=== PATIENT | female | born 1945 | race Caucasian/White ===

== ENCOUNTER 2023-06-05 11:34 | Inpatient (IN) | payer MEDICARE, MEDICAID, SELFPAY ==
[2023-06-05] VITALS (18 sets, daily range): BP systolic 98–161; BP diastolic 47–111; PULSE 61–86; RESP 12–20; TEMP 37–37.7; O2SAT 95–100; BMI 21.3
--- NOTE | ~2023-06-05 | CT_ITS ---
EXAMINATION: CTA abdomen pelvis DATE: 06/06/2023 18:02 INDICATION: Abdominal aortic aneurysm on chest CT TECHNIQUE: Computed tomographic angiography (CTA) of the abdomen and pelvis was performed with 100 mL Omnipaque-350 intravenous contrast. Maximum intensity projection 3D-reconstructions of the aorta and other arteries were constructed by the technologist on a separate workstation. The dose-length produ ct (DLP) was 307.74 mGy-cm. Automated exposure control and iterative reconstruction technique were em ployed. COMPARISON: None. FINDINGS: There is a 3.1 x 3.0 cm fusiform infrarenal abdominal aortic aneurysm. There is a short seg ment of dissection of the infrarenal abdominal aorta which appears to be fenestrated. There is calcif ied atherosclerosis of the iliac vessels without hemodynamically significant stenosis. The celiac axi s, superior mesenteric artery and inferior mesenteric artery are normal at their origins. There are s andriy renal arteries. The heart size is normal. There is mild emphysema of the visualized lung bases. There is a small slid ing hiatal hernia. There is a 7 mm cyst in the right hepatic lobe. The spleen, pancreas, gallbladder, and adrenal glands are unremarkable. Cysts of the kidneys measure up to 6 mm on the left. No patholo gically enlarged abdominal or pelvic lymph nodes are identified. No free intraperitoneal gas or evide nce of bowel obstruction. Colonic diverticulosis is present without evidence of diverticulitis. There is a burst fracture of L4. IMPRESSION: 1. 3.1 cm fusiform infrarenal abdominal aortic aneurysm with a short segment aortic dissection, likel y fenestrated. Vascular surgical follow-up is recommended. Reviewed, dictated and finalized at location F. ATION SUPERVISOR IMPRESSION: 1. 3.1 cm fusiform infrarenal abdominal aortic aneurysm with a short segment ao rtic dissection, likely fenestrated. Vascular surgical follow-up is recommended .
--- NOTE | ~2023-06-05 | CT_ITS ---
EXAMINATION:CT diagnostic chest wo con DATE: 06/05/2023 16:19 INDICATION: Lung mass. TECHNIQUE: Computed tomography (CT) of the chest was performed without intravenous contrast. Automate d exposure control and iterative reconstruction technique were employed. The dose-length product (DLP ) was 175.26 mGy-cm. COMPARISON: Chest single view 06/05/2023 FINDINGS: There is mild emphysema. There are airspace opacities with volume loss and calcifications a t the lung apices, right worse than left. No pleural effusion. There is a 6 mm nodule in right thyroi d lobe, likely not clinically significant. The heart size is normal. There are coronary artery calcif ications. No pericardial effusion. The central pulmonary arteries are enlarged, consistent with pulmo nary arterial hypertension. There are surgical clips in right axilla. Partially visualized is an abdo tonya aortic aneurysm measuring at least 3.1 cm . There is severe cervical spondylosis and moderate t horacic spondylosis. There is a chronic compression fracture of T10. IMPRESSION: 1. Airspace opacities at the lung apices, right worse than left, most likely granulomatous disease. C onsider PET/CT to exclude malignancy. 2. Mild emphysema. 3. Partially visualized abdominal aortic aneurysm measuring at least 3.1 cm. Abdomen CTA is recommend ed. Reviewed, dictated and finalized at location A. TRICAL RESEARCH ENGINEER IMPRESSION: 1. Airspace opacities at the lung apices, right worse than left, most likely gr anulomatous disease. Consider PET/CT to exclude malignancy. 2. Mild emphysema. 3. Partially visualized abdominal aortic aneurysm measuring at least 3.1 cm. Ab domen CTA is recommended.
--- NOTE | ~2023-06-05 | CT_ITS ---
EXAMINATION: CT brain wo con DATE: 06/05/2023 14:05 INDICATION: Syncopal episode. TECHNIQUE: Computed tomography (CT) of the head was performed without intravenous contrast. Sagittal and coronal reconstructions were performed. The mA was adjusted according to patient size. Iterative reconstruction technique was employed. The dose-length product was 681.00 mGy-cm. COMPARISON: None FINDINGS: Prominent metallic streak artifact surrounding a 2.0 x 1.7 x 1.8 cm multiple metallic embolization co ils along the cephalad margin of stenting of the suprasellar portion of the left internal carotid art fernando. No acute intracranial hemorrhage, acute infarction or abnormal extra axial fluid collection. The re is mild scattered white matter hypoattenuation consistent with chronic small vessel ischemic disea se. Ventricles are normal and symmetric. No mass/mass effect. Changes of bilateral intraocular lens r eplacement. The orbits and mastoid air cells are normal. Mucosal thickening at the bilateral frontal and ethmoid sinuses. IMPRESSION: 1. Mild scattered white matter hypoattenuation consistent with chronic small vessel ischemic disease. No acute intracranial process. 2. Large ball of embolization coils underlying a stent along the suprasellar portion of the left inte rnal carotid artery. Correlate with surgical history. Reviewed, dictated and finalized at location L. [facility] HOSPITAL CLERK IMPRESSION: 1. Mild scattered white matter hypoattenuation consistent with chronic small ve ssel ischemic disease. No acute intracranial process. 2. Large ball of embolization coils underlying a stent along the suprasellar po rtion of the left internal carotid artery. Correlate with surgical history.
--- NOTE | ~2023-06-05 | XR_ITS ---
EXAMINATION: XR chest 1V portable DATE: 06/05/2023 14:58 INDICATION: Syncope. TECHNIQUE: A single frontal view of the chest was obtained. COMPARISON: None. FINDINGS: There are airspace opacities in right upper lobe. There is mild scarring at left lung apex. No pleural effusion or pneumothorax. The heart size is normal. There are surgical clips in right axi lla. IMPRESSION: 1. Airspace opacities in right upper lobe, which may be primary bronchogenic carcinoma, pneumonia, or granulomatous disease. Noncontrast chest CT is recommended. Reviewed, dictated and finalized at location A. SEWER IMPRESSION: 1. Airspace opacities in right upper lobe, which may be primary bronchogenic ca rcinoma, pneumonia, or granulomatous disease. Noncontrast chest CT is recommend ed.
--- NOTE | 2023-06-05 11:42 | ECG_ITS ---
Measurements Intervals [place] Rate: 62 P: -6 MN: 133 QRS: -3 QRSD: 90 T: -12 QT: 411 QTc: 419 Interpretive Statements SINUS RHYTHM VOLTAGE CRITERIA FOR LVH [MEETS CRITERIA IN ONE OF: R(aVL), S(V1), R(V5), R(V5/V6)+S(V1)] INFERIOR MYOCARDIAL INFARCTION , OF INDETERMINATE AGE [40+ ms Q WAVE AND/OR ST/T ABNORMALITY IN II/aVF] NO PREVIOUS ECG AVAILABLE FOR COMPARISON Electronically Signed On 06-05-2023 15:49:36 PUBLIC FINANCE SPECIALIST by Anayeli Fuchs M.D.
[2023-06-05 12:01] LABS: Basophils Percent Auto 0.3 % (0.2-1.2); Eosinophils Absolute Auto 0.1 K/mm3 (0-0.3); Eosinophils Percent Auto 0.8 % (0-4.4); Hematocrit 30.6 % (37.0-47.0); Hemoglobin 10.1 g/dL (12.0-15.0); Immature Granulocyte Absolute 0.05 K/mm3 (0.00-0.031); Immature Granulocyte Percent A 0.7 % (0-0.5); Lymphocytes Percent Auto 5.3 % (18.3-44.2); Mean Corpuscular Hemoglobin 35.3 pg (26-34); Mean Platelet Volume 9.6 fl (7.4-10.4); Monocytes Percent Auto 12.5 % (2.6-8.5); Neutrophils Absolute Auto 6.1 K/mm3 (1.3-6.7); Neutrophils Percent Auto 80.4 % (45.5-73.1); Platelet Count Result 204 k/mm3 (150-375); Red Blood Count 2.86 M/mm3 (4.2-5.4); Red Cell Distribution Width 12.8 % (11.5-14.5); White Blood Count 7.6 K/mm3 (4.5-10.0)
[2023-06-05 12:12] LABS: Alanine Aminotransferase 23 U/L (6-35); Albumin Level 3.8 g/dL (3.5-5.1); Alkaline Phosphatase 75 U/L (38-126); Anion Gap 7 mmol/L (8-16); Aspartate Amino Transferase 24 U/L (14-36); Bilirubin,Total 0.4 mg/dL (0.2-1.3); Blood Urea Nitrogen 17 mg/dL (7-17); Calcium 9.4 mg/dL (8.4-10.2); Carbon Dioxide 28 mmol/L (22-30); Chloride 99 mmol/L (98-107); Estimated Glomerular Filt Rate > 60; Glucose 130 mg/dL (65-110); Potassium 3.7 mmol/L (3.4-5.0); Sodium 134 mmol/L (137-145)
[2023-06-05 12:33] LABS: Anisocytosis 1+ (NORMAL); Hypochromasia 1+ (NORMAL); Platelet Estimate Adequate (Adequate); Poikilocytosis 1+ (NORMAL); Schistocytes None Seen (NORMAL)
--- NOTE | 2023-06-05 13:41 | PC.NURSE ---
Update on pt given to MEY Breaux at [facility].
[2023-06-05] MEDS: SODIUM CHLORIDE 0.9% IV 1,000 ML 999 ML IV CONT (13:53)
--- NOTE | 2023-06-05 14:33 | ED.SYNCOPE ---
HPI - Syncope General Chief Complaint: Syncope Stated Complaint: syncope vs unresponsive episode Time Seen by Provider: 06/05/23 13:12 History of Present Illness HPI narrative: This is a 77-year-old female, with history stroke, left carotid endarterectomy 1 month ago and seizures, who presents to the emergency department after a possible syncopal episode. The patient states she was seated, when she felt hot, flushed, nauseated and lost consciousness. She is not sure for how long she was out. She denies confusion or pain waking consistent with seizure. She has no other complaints at this time. Related Data Home Medications Medication Instructions Recorded Confirmed acetaminophen 500 mg tablet 500 mg PO Q6H PRN Pain, Mild 06/05/23 06/05/23 amlodipine 5 mg tablet 5 mg PO DAILY 06/05/23 06/05/23 anastrozole 1 mg tablet 1 mg PO DAILY 06/05/23 06/05/23 aspirin 325 mg tablet,delayed 325 mg PO DAILY 06/05/23 06/05/23 release atorvastatin 40 mg tablet 40 mg PO DAILY 06/05/23 06/05/23 cholecalciferol (vitamin D3) 125 125 mcg PO DAILY 06/05/23 06/05/23 mcg (5,000 unit) tablet escitalopram oxalate 10 mg tablet 10 mg PO HS 06/05/23 06/05/23 levetiracetam 750 mg tablet 750 mg PO BID 06/05/23 06/05/23 losartan 50 mg tablet 50 mg PO DAILY 06/05/23 06/05/23 metoprolol succinate 25 mg 25 mg PO HS 06/05/23 06/05/23 tablet,extended release 24 hr Allergies Allergy/AdvReac Type Severity Reaction Status Date / Time latex Allergy Rash Verified 06/05/23 18:29 Review of Systems Review of Systems: CONSTITUTIONAL: Denies fever, chills, or sweats. CARDIOVASCULAR: Denies chest pain, palpitations, or edema. RESPIRATORY: Denies cough or dyspnea. GASTROINTESTINAL: Denies abdominal pain, nausea, vomiting, or diarrhea. GENITOURINARY: Denies dysuria or hematuria. SKIN: Denies rash or itching. MUSCULOSKELETAL: Denies back pain, joint pain, or myalgia. NEUROLOGIC: Syncope denies headache, numbness, dizziness, or weakness. PSYCHIATRIC: Denies anxiety or depression. [facility], [facility] Past Medical History Medical History Seizure Stroke Surgical History Surgical History History of carotid endarterectomy Social History Social History Smoking packs per day: 2 Smoking cigarettes per day: 40.0 Years smoked: 60 Smoking pack-years: 120.00 Smoking status: Former smoker Tobacco type: cigarettes Second hand tobacco smoke exposure: Yes Smoking end date: 04/25/23 Alcohol intake: never Substance use: never Do You Feel Safe in your Home?: Yes Lack of Transportation: No Lack of Food: Never True Current Housing: I Have Housing Concerned About Future Housing: No Difficulty Paying Gas/Electric Bills: No Difficulty Paying for Meds: No Currently Unemployed: No Education: High School Diploma/GED Difficulty w/ Childcare or Family Care: No Spiritual care concerns: No Exam Narrative: GENERAL: Well-developed, well-nourished, and in no acute distress. HEAD: Normocephalic, atraumatic. EYES: PERRLA and EOMI. CHEST: Clear to auscultation. No respiratory distress. No wheezes rales or rhonchi HEART: Regular rate and rhythm. No murmur heard. Normal peripheral pulses. ABDOMEN: Soft, nontender, nondistended, normal active bowel sounds. EXTREMITIES: Normal range of motion. No edema. SKIN: Warm, dry, no rash. NEURO: Alert and oriented x3. No focal deficit. Moving all 4 limbs spontaneously. Cranial nerves 2-12 intact, no noted ataxia PSYCH: Normal mood and affect. Course Course Emergency Course: 15:42 - CT head not concerning for acute showed intracranial hemorrhage or mass. Chemistries unremarkable. CBC demonstrates mild anemia with hemoglobin of 10.1 with unknown baseline. Chest x-ray showed possible granulomatous versus malignant verses infectious proc
[2023-06-05 15:26] LABS: Creatine Kinase 21 U/L (30-135); Magnesium 1.8 mg/dL (1.6-2.3)
[2023-06-05 16:25] LABS: Appearance Urine Cloudy (Clear); Bacteria Urine 4+ /hpf; Bilirubin Urine Negative (Negative); Blood Urine 1+ (Negative); Color Urine Yellow (Yellow); Glucose Urine UA Negative (Negative); Ketones Urine Negative (Negative); Leukocyte Esterase Ur 3+ LEU/UL (Negative); Need Manual Microscopic Reviewed; Nitrate Urine Positive (Negative); Protein Urine Negative (Negative); RBC Urine 0-2 /hpf (0-2); Specific Grav Ur 1.009 (1.001-1.035); Squamous Epithelial Cell Urine None seen /hpf (Few); Urobilinogen Urine 0.2 mg/dL (<2.0); WBC Urine >100 /hpf; pH Urine 5.5 (5.0-9.0)
[2023-06-05 16:26] LABS: Add Urine Microscopic? YES
[2023-06-05 16:31] LABS: Troponin I < 0.012 ng/mL (0.000-0.034)
[2023-06-05 17:16] LABS: Troponin I < 0.012 ng/mL (0.000-0.034)
--- NOTE | 2023-06-05 17:29 | PC.NURSE ---
Dinner tray ordered for pt, requested for tray to go to 250.
--- NOTE | 2023-06-05 17:55 | ADMGEN ---
This patient, Mitzi Lehman, was admitted to Medical Room 250-01. Patient/family oriented to hospital policies and general routines including ID bracelet, bed and alarms, visiting hours, pain management, procedures, bathroom and other care routines, personal items, smoking policy, room service/diet, and visiting hours. Information on how to activate the Rapid Response Team has been discussed. Patient/Family are encouraged to report perceived risks to care and to ask questions if they do not understand what they are told or what they should do.
--- NOTE | 2023-06-05 19:23 | PC.NURSE ---
I reviewed the License Pending RN's documentation and agree with the findings.
--- NOTE | 2023-06-05 21:46 | PM.IMHP ---
H&P: HPI History of Present Illness Date/Time: 06/05/23 21:46 Chief Complaint: Near Syncope/Possible Syncope Narrative: 77 y/o F presents here with possible syncope with PMH of seizures, CVA, anxiety/depression, rib/thoracic vertebral fractures, former smoker (2022, approx 6 mos ago), and carotid endarterectomy (L). No Hx of Aortic aneurysm. anemia secondary to menstruation. Doesn't know why she is on a statin. Dysrhythmia - not to her knowledge. Majority of HPI obtained through chart review, patient did contribute some history through interview. Patient presents here via EMS from [facility] for further evaluation of subjective fever and loss of consciousness. Patient reports that she was seated earlier today when she had sudden/insidious onset of feeling hot and flushed , moderate nausea, and subsequent LOC. Unwitnessed and unclear length of time. No subsequent trauma, head strike, or fall. No confusion when she regained consciousness. No oral or tongue trauma. Denies abdominal pain. No dysuria, urinary frequency, or hematuria. No chills or body aches. Patient now denying syncope/LOC. Does not remember events for this morning. Moderate fatigue, but not increased from baseline. Patient made multiple statements to the effect of sleeping a lot and being tired often is related to inability to drive anywhere and being stuck at the facility. No dark tarry stools or BRBPR. Initial VS at presentation: 98.6 F, HR 78, RR 20, 118/55, 97% on RA. ED workup showed no leukocytosis, anemia with a hemoglobin of 10.1, MCV 107, troponin negative x2, CK 21, and UA consistent with UTI. Head CT did not show any acute intracranial process. CXR showed airspace opacity in the right upper lobe, CT obtained to differentiate. CT of the chest (non-con) showed airspace opacity to be more consistent with granulomatous disease, mild emphysema, and partially visualized abdominal aortic aneurysm measuring 3.1. Review of Systems Review of Systems: All systems reviewed & are unremarkable except as noted in HPI and below PMFSH Past Medical History Medical History Anxiety Bladder cancer Breast cancer Depression Emphysema, unspecified HTN (hypertension) Rib fractures Seizure Stroke Thoracic spine fracture Surgical History Surgical History History of ankle surgery R - plates/pins placed History of cardiac catheterization History of carotid endarterectomy History of hysterectomy Social History Social History Smoking packs per day: 2 Smoking cigarettes per day: 40.0 Years smoked: 60 Smoking pack-years: 120.00 Smoking status: Former smoker Tobacco type: cigarettes Second hand tobacco smoke exposure: Yes Smoking end date: 04/25/23 Alcohol intake: never Substance use: never Do You Feel Safe in your Home?: Yes Lack of Transportation: No Lack of Food: Never True Current Housing: I Have Housing Concerned About Future Housing: No Difficulty Paying Gas/Electric Bills: No Difficulty Paying for Meds: No Currently Unemployed: No Education: High School Diploma/GED Difficulty w/ Childcare or Family Care: No Spiritual care concerns: No Meds Home Medications and Allergies Home Medications Medication Instructions Recorded Confirmed Type acetaminophen 500 mg tablet 500 mg PO Q6H PRN Pain, Mild 06/05/23 06/05/23 History amlodipine 5 mg tablet 5 mg PO DAILY 06/05/23 06/05/23 History anastrozole 1 mg tablet 1 mg PO DAILY 06/05/23 06/05/23 History aspirin 325 mg tablet,delayed 325 mg PO DAILY 06/05/23 06/05/23 History release atorvastatin 40 mg tablet 40 mg PO DAILY 06/05/23 06/05/23 History cholecalciferol (vitamin D3) 125 125 mcg PO DAILY 06/05/23 06/05/23 History mcg (5,000 unit) tablet escitalopram oxalate 10 mg tablet 10 mg PO HS 06/05/23 02
[2023-06-05] MEDS: levETIRAcetam 250 MG TABLET 750 MG PO (23:15)
[2023-06-05] MEDS: ESCITALOPRAM OXALATE 10 MG TABLET PO (23:16)
[2023-06-05] MEDS: METOPROLOL SUCCINATE EXT REL 25 MG TABCR PO (23:19)
[2023-06-06] VITALS (11 sets, daily range): BP systolic 108–123; BP diastolic 51–87; PULSE 62–94; RESP 16–18; TEMP 37.5–37.6; O2SAT 96
[2023-06-06 03:02] LABS: Thyroid Stimulating Hormone Reflex 0.655 uIU/mL (0.465-4.68)
[2023-06-06 04:56] LABS: Folic Acid 14.2 ng/mL (2.76->20)
[2023-06-06 05:15] LABS: Basophils Percent Auto 0.3 % (0.2-1.2); Eosinophils Percent Auto 0.5 % (0-4.4); Hematocrit 33.2 % (37.0-47.0); Hemoglobin 10.8 g/dL (12.0-15.0); Immature Granulocyte Absolute 0.04 K/mm3 (0.00-0.031); Immature Granulocyte Percent A 0.7 % (0-0.5); Lymphocytes Absolute Auto 0.65 K/mm3 (0.9-3.2); Mean Corpuscular HGB Conc 32.5 g/dl (32-36); Mean Corpuscular Hemoglobin 34.8 pg (26-34); Mean Corpuscular Volume 107.1 fl (80-100); Mean Platelet Volume 9.7 fl (7.4-10.4); Monocytes Absolute Auto 0.8 K/mm3 (0.1-0.6); Monocytes Percent Auto 13.2 % (2.6-8.5); Neutrophils Absolute Auto 4.4 K/mm3 (1.3-6.7); Neutrophils Percent Auto 74.3 % (45.5-73.1); Platelet Count Result 207 k/mm3 (150-375); Red Cell Distribution Width 12.7 % (11.5-14.5); White Blood Count 5.9 K/mm3 (4.5-10.0)
[2023-06-06 05:32] LABS: Anion Gap 4 mmol/L (8-16); Blood Urea Nitrogen 12 mg/dL (7-17); Calcium 8.9 mg/dL (8.4-10.2); Carbon Dioxide 28 mmol/L (22-30); Chloride 101 mmol/L (98-107); Estimated CRCL calculation 84 ml/min; Estimated Glomerular Filt Rate > 60; Glucose 106 mg/dL (65-110); Sodium 133 mmol/L (137-145)
[2023-06-06 05:38] LABS: Anisocytosis 1+ (NORMAL); Hypochromasia 1+ (NORMAL); Platelet Estimate Adequate (Adequate); Schistocytes None Seen (NORMAL)
[2023-06-06] MEDS: ANASTROZOLE (*CHEMO) 1 MG TABLET PO (09:13)
[2023-06-06] MEDS: ASPIRIN 325 MG ENTERIC TABLET PO (09:13)
[2023-06-06] MEDS: amLODIPine BESYLATE 5 MG TABLET PO (09:13)
[2023-06-06] MEDS: levETIRAcetam 250 MG TABLET 750 MG PO ×2 (09:14→21:53)
[2023-06-06] MEDS: ATORVASTATIN 40 MG TABLET PO (09:14)
[2023-06-06] MEDS: CHOLECALCIFEROL 1,000 UNITS TABLET 5000 UNITS PO (09:14)
[2023-06-06] MEDS: LOSARTAN POTASSIUM 50 MG TABLET PO (09:15)
--- NOTE | 2023-06-06 14:11 | PM.IMPN ---
Progress Note: A&P Assessment and Plan (1) Syncope: Qualifiers: Syncope type: unspecified Qualified Code(s): R55 - Syncope and collapse Code(s): R55 - Syncope and collapse Status: Acute Assessment and Plan: EKG: Sinus rhythm, voltage criteria for LVH, inferior WI of indeterminate age, no previous EKG for comparison. troponin: <0.[address] 1. Mild scattered white matter hypoattenuation consistent with chronic small vessel ischemic disease. No acute intracranial process. 2. 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 Correlate with surgical history. CXR 1. Airspace opacities in right upper lobe, which may be primary bronchogenic carcinoma, pneumonia, or granulomatous disease. Noncontrast chest CT is recommended. Chest CT 1. Airspace opacities at the lung apices, right worse than left, most likely granulomatous disease. Consider PET/CT to exclude malignancy. 2. Mild emphysema. 3. Partially visualized abdominal aortic aneurysm measuring at least 3.1 cm. Abdomen CTA is recommended. CTA ordered no significant electrolyte abnormalities UA consistent with UTI, started on ceftriaxone on . see below. tele monitoring (2) UTI (urinary tract infection): Qualifiers: Hematuria presence: with hematuria Urinary tract infection type: acute cystitis Qualified Code(s): N30.01 - Acute cystitis with hematuria Code(s): N39.0 - Urinary tract infection, site not specified Status: Acute Assessment and Plan: UA: Cloudy, 1+ blood, positive nitrates, 3+ leuks, greater than 100 wbcs, no epithelial cells, 4+ bacteria UC pending continue Rocephin (3) Anemia: Code(s): D64.9 - Anemia, unspecified Status: Acute Assessment and Plan: hgb 10.1 on admission w/ no hx of anemia 10.8 this am vitamin B12 227, will start on PO vitamin b12 folic acid 14.2 TSH 0.655 - no reported GI bleed symptoms (4) Abnormal finding on imaging: Code(s): R93.89 - Abnormal findings on diagnostic imaging of other specified body structures Status: Acute Assessment and Plan: - CXR 1. Airspace opacities in right upper lobe, which may be primary bronchogenic carcinoma, pneumonia, or granulomatous disease. Noncontrast chest CT is recommended. - Chest CT 1. Airspace opacities at the lung apices, right worse than left, most likely granulomatous disease. Consider PET/CT to exclude malignancy. 2. Mild emphysema. 3. Partially visualized abdominal aortic aneurysm measuring at least 3.1 cm. Abdomen CTA is recommended. - no current symptoms concerning for dissection. - CT Abdomen ordered Plan Diet: Heart healthy GI Prophylaxis: Not currently indicated DVT Prophylaxis: SCDs Lines: pIV Code Status: Full Code Subjective Date/time seen: 06/06/23 14:11 Interval history: Patient is A&O x3, no complaints this morning. She denies any syncope or LOC yesterday. Denies known urinary symptoms. Will continue Rocephin and plan to transition to PO AB when culture results and d/c. Ordered CTA for further evaluation of AA, although likely can be followed outpatient as she is not symptomatic or concerning for dissection. Review of Systems Review of Systems: All systems reviewed & are unremarkable except as noted in HPI and below Exam Narrative: GENERAL: Well-developed, well-nourished, and in no acute distress. HEAD: Normocephalic, atraumatic. EYES: PERRLA and EOMI. CHEST: Clear to auscultation. No respiratory distress. HEART: RRR. No murmur heard. Normal peripheral pulses. ABDOMEN: Soft, nontender, nondistended, normal active bowel sounds. EXTREMITIES: Normal range of motion. No edema. SKIN: Warm, dry, no rash. NEURO: Alert and oriented x3. No focal deficit. cranial nerves 2-12 intact. PSYCH: Normal mood and affect. Objective Data Vital Signs Vital
--- NOTE | 2023-06-06 16:14 | PC.NURSE ---
Unable to complete CTA consent at this time. POA called and went to voicemail.
[2023-06-06] MEDS: ESCITALOPRAM OXALATE 10 MG TABLET PO (21:53)
[2023-06-06] MEDS: METOPROLOL SUCCINATE EXT REL 25 MG TABCR PO (21:53)
[2023-06-07] VITALS (11 sets, daily range): BP systolic 100–113; BP diastolic 38–62; PULSE 58–65; RESP 16–18; TEMP 36.4–37.1; O2SAT 96–98
--- NOTE | 2023-06-07 | ECHO_ITS ---
Patient Info Name: Mitzi Lehman Age: 77 years : 1945 Gender: Female Ht: 69 in Wt: 144 lbs BSA: 1.78 m2 HR: 60 bpm BP: 100 / 62 mmHg Heart Rhythm: Sinus Rhythm Technical Quality: Good Exam Date: 06/07/2023 2:07 PM Exam Location: Echo Lab Patient Status: Inpatient Admit Date: 06/07/2023 Staff Ordering Physician: Mayank Angelo MD Form Block Maker: Servando Will RDCS Attending Provider: Tito Ding MD Referring Physician: Gi CHEN; Exam Type: CA echo doppler color flow Study Info Indications - syncope Complete two-dimensional, color flow and Doppler transthoracic echocardiogram is performed. Summary 1. Complete two-dimensional, color flow and Doppler transthoracic echocardiogram is performed. 2. Left ventricular chamber dimension is normal. 3. Left ventricular systolic function is normal, estimated at 65-70%. 4. There is mildly increased left ventricular wall thickness. 5. The left ventricular diastolic function is normal. 6. Left atrial chamber dimension is mildly enlarged. 7. There is mild mitral valve regurgitation. 8. There is mild tricuspid valve regurgitation. 9. Moderate pulmonary hypertension, estimated pulmonary arterial systolic pressure is 49 mmHg. Left Ventricle Left ventricular chamber dimension is normal. Left ventricular systolic function is normal, estimated at 65-70%. There is mildly increased left ventricular wall thickness. The left ventricular diastolic function is normal. Right Ventricle Right ventricular chamber dimension is normal. Right ventricular systolic function is normal. Left Atria Left atrial chamber dimension is mildly enlarged. Right Atria Right atrial chamber dimension is normal. Atrial Septum Intact interatrial septum visualized by color flow imaging. Aortic Valve The aortic valve is probable trileaflet. There is moderate aortic valve sclerosis. There is no aortic valve stenosis. There is trace aortic valve regurgitation. Pulmonic Valve The pulmonic valve is normal. There is no pulmonic valve stenosis. There is trace pulmonic regurgitation. Mitral Valve The mitral valve has thickened leaflets. There is no mitral valve stenosis. There is mild mitral valve regurgitation. Tricuspid Valve The tricuspid valve leaflets are normal. There is no significant tricuspid valve stenosis. There is mild tricuspid valve regurgitation. Moderate pulmonary hypertension, estimated pulmonary arterial systolic pressure is 49 mmHg. Pericardium/Pleural The pericardium appears normal. There is no pericardial effusion. Inferior Vena Cava Normal inferior vena cava with >50% collapse upon inspiration consistent with normal right atrial pressure, 10 mmHg. Aorta The aortic root size at the sinus of Valsalva is normal. There is mild aortic atherosclerosis. Left Ventricular Outflow Tract Name Value Normal LVOT 2D LVOT Diameter 2.0 cm LVOT Doppler LVOT Peak Gradient 7 mmHg LVOT Mean Gradient 3 mmHg LVOT VTI 41 cm LVOT VTI/AV VTI Ratio 1.2 LVOT Stroke Volume 125 ml LVOT CO
[2023-06-07 05:16] LABS: Basophils Percent Auto 0.2 % (0.2-1.2); Eosinophils Absolute Auto 0.1 K/mm3 (0-0.3); Hematocrit 29.6 % (37.0-47.0); Hemoglobin 9.7 g/dL (12.0-15.0); Immature Granulocyte Absolute 0.02 K/mm3 (0.00-0.031); Immature Granulocyte Percent A 0.3 % (0-0.5); Lymphocytes Absolute Auto 0.65 K/mm3 (0.9-3.2); Lymphocytes Percent Auto 11.3 % (18.3-44.2); Mean Corpuscular HGB Conc 32.8 g/dl (32-36); Mean Corpuscular Hemoglobin 34.8 pg (26-34); Mean Corpuscular Volume 106.1 fl (80-100); Mean Platelet Volume 9.8 fl (7.4-10.4); Monocytes Percent Auto 16.8 % (2.6-8.5); Neutrophils Absolute Auto 4.1 K/mm3 (1.3-6.7); Neutrophils Percent Auto 70.4 % (45.5-73.1); Platelet Count Result 174 k/mm3 (150-375); Red Blood Count 2.79 M/mm3 (4.2-5.4); Red Cell Distribution Width 12.6 % (11.5-14.5); White Blood Count 5.8 K/mm3 (4.5-10.0)
[2023-06-07 05:35] LABS: Anion Gap 3 mmol/L (8-16); Blood Urea Nitrogen 15 mg/dL (7-17); Calcium 9.1 mg/dL (8.4-10.2); Carbon Dioxide 29 mmol/L (22-30); Chloride 99 mmol/L (98-107); Estimated CRCL calculation 62 ml/min; Estimated Glomerular Filt Rate > 60; Glucose 106 mg/dL (65-110); Potassium 3.5 mmol/L (3.4-5.0); Sodium 131 mmol/L (137-145)
--- NOTE | 2023-06-07 08:15 | PM.IMPN ---
Progress Note: A&P Assessment and Plan (1) UTI (urinary tract infection): Qualifiers: Hematuria presence: with hematuria Urinary tract infection type: acute cystitis Qualified Code(s): N30.01 - Acute cystitis with hematuria Code(s): N39.0 - Urinary tract infection, site not specified Status: Acute Assessment and Plan: C/s with GNR's Continue ceftriaxone (2) Syncope: Qualifiers: Syncope type: unspecified Qualified Code(s): R55 - Syncope and collapse Code(s): R55 - Syncope and collapse Status: Acute Assessment and Plan: Possibly related to infection 3/2 echo to evaluate for (3) Anemia: Code(s): D64.9 - Anemia, unspecified Status: Acute Assessment and Plan: Macrocytic with plt 174k C/w B12 deficiency (4) AAA (abdominal aortic aneurysm) without rupture: Code(s): I71.40 - Abdominal aortic aneurysm, without rupture, unspecified Status: Acute Assessment and Plan: Findings on CTA c/w small, chronic 3.1 cm fusiform infra-renal aneurysm with small area of dissection and fenestration F/u by PCP or vascular as outpatient (5) Heart murmur: Code(s): R01.1 - Cardiac murmur, unspecified Status: Acute Assessment and Plan: 3/2 echo (6) Vitamin B12 deficiency: Code(s): E53.8 - Deficiency of other specified B group vitamins Status: Acute Assessment and Plan: 3/2 began B12 and folic acid (1mg daily) supplementation with B12 IM 1000 mcg x 1 and B12 PO 1000 mcg daily (7) Hyponatremia: Code(s): E87.1 - Hypo-osmolality and hyponatremia Status: Acute Assessment and Plan: Mild at 131 but slow trend downward Suspect SIADH due to acute illness FENA pending Subjective Date/time seen: 06/07/23 08:15 Interval history: No dizziness or syncopal episodes since admission. Appetite good. No chest pain shortness of breath. No GI complaints. No abnormal bleeding. not aware of any prior history of abdominal aneurysm or cardiac murmur. Review of Systems Review of Systems: All systems reviewed & are unremarkable except as noted in HPI and below Exam Narrative: HEENT: PERRL, sclerae nonicteric, pharyngeal mucosa pink and intact NECK: No JVD CHEST: Clear to auscultation. Normal effort. HEART: NL S1/S2, regular, 2/6 KATIE R/LUSB TO CAROTIDS ABDOMEN: BS+, soft, nontender, no mass, SOFT EPIGASTRIC BRUITS EXTREMITIES: No cyanosis, edema, or clubbing NEUROLOGIC: CN intact and symmetric to inspection. MUSCULOSKELETAL: Tone and strength symmetric. PSYCH: Alert. Oriented to person, place, and time. Objective Data Vital Signs Vital Signs: Vital Signs - 24 hr 06/06/23 09:12 06/06/23 09:10 06/06/23 13:48 Temperature Pulse Rate 75 Respiratory Rate Blood Pressure 110/87 Pulse Oximetry Oxygen Delivery Room Air Room Air 06/06/23 12:00 06/06/23 15:42 06/06/23 14:43 Temperature 99.6 F Pulse Rate 82 66 Respiratory Rate 16 Blood Pressure 108/51 L Pulse Oximetry 96 Oxygen Delivery Room Air 06/06/23 16:00 06/06/23 20:17 06/06/23 21:53 Temperature 99.6 F Pulse Rate 79 78 78 Respiratory Rate 18 Blood Pressure 112/52 L Pulse Oximetry 96 Oxygen Delivery 06/06/23 20:00 06/07/23 00:00 06/07/23 04:00 Temperature Pulse Rate 94 65 61 Respiratory Rate Blood Pressure Pulse Oximetry Oxygen Delivery 06/07/23 05:09 Temperature 98.4 F Pulse Rate 62 Respiratory Rate 16 Blood Pressure 113/53 L Pulse Oximetry 96 Oxygen Delivery Intake/Output Intake/Output: Intake & Output 06/04/23 06/05/23 06/06/23 06/07/23 23:59 23:59 23:59 23:59 Intake Total 1050 1260 400 Balance 1050 1260 400 Meds/Results Medications: Active Medications Generic Name Dose Route Start Last Admin Trade Name Freq PRN Reason Stop Dose Admin Acetaminophen 500 mg 06/05/23 21:56 Acetaminophen 500 Mg Tablet
[2023-06-07] MEDS: levETIRAcetam 250 MG TABLET 750 MG PO ×2 (09:09→20:38)
[2023-06-07] MEDS: ATORVASTATIN 40 MG TABLET PO (09:09)
[2023-06-07] MEDS: CYANOCOBALAMIN 1,000 MCG TABLET 1000 MCG PO (09:10)
[2023-06-07] MEDS: FOLIC ACID 1 MG TABLET PO (09:11)
[2023-06-07] MEDS: ANASTROZOLE (*CHEMO) 1 MG TABLET PO (09:11)
[2023-06-07] MEDS: CHOLECALCIFEROL 1,000 UNITS TABLET 5000 UNITS PO (09:12)
[2023-06-07] MEDS: CYANOCOBALAMIN INJ 1,000 MCG/ML VIAL 1000 MCG IM (09:12)
[2023-06-07] MEDS: ASPIRIN 325 MG ENTERIC TABLET PO (11:47)
[2023-06-07] MEDS: LOSARTAN POTASSIUM 50 MG TABLET PO (11:47)
[2023-06-07 16:42] LABS: Creatinine Urine 67.2 mg/dL
[2023-06-07 16:47] LABS: Sodium Urine Random 18 meq/L
[2023-06-07] MEDS: ESCITALOPRAM OXALATE 10 MG TABLET PO (20:37)
[2023-06-07] MEDS: METOPROLOL SUCCINATE EXT REL 25 MG TABCR PO (20:37)
[2023-06-08] VITALS: PULSE 51
[2023-06-08 03:08] VITALS: BP 104/50; PULSE 52; RESP 16; TEMP 36.3; O2SAT 94
[2023-06-08 04:00] VITALS: PULSE 53
[2023-06-08 05:04] LABS: Basophils Percent Auto 0.5 % (0.2-1.2); Eosinophils Absolute Auto 0.3 K/mm3 (0-0.3); Eosinophils Percent Auto 6.8 % (0-4.4); Hemoglobin 9.6 g/dL (12.0-15.0); Immature Granulocyte Absolute 0.03 K/mm3 (0.00-0.031); Immature Granulocyte Percent A 0.7 % (0-0.5); Lymphocytes Absolute Auto 0.71 K/mm3 (0.9-3.2); Lymphocytes Percent Auto 16.1 % (18.3-44.2); Mean Corpuscular HGB Conc 33.1 g/dl (32-36); Mean Corpuscular Hemoglobin 34.8 pg (26-34); Mean Corpuscular Volume 105.1 fl (80-100); Mean Platelet Volume 9.7 fl (7.4-10.4); Monocytes Absolute Auto 0.9 K/mm3 (0.1-0.6); Monocytes Percent Auto 19.8 % (2.6-8.5); Neutrophils Absolute Auto 2.5 K/mm3 (1.3-6.7); Neutrophils Percent Auto 56.1 % (45.5-73.1); Platelet Count Result 157 k/mm3 (150-375); Red Blood Count 2.76 M/mm3 (4.2-5.4); Red Cell Distribution Width 12.6 % (11.5-14.5); White Blood Count 4.4 K/mm3 (4.5-10.0)
[2023-06-08 05:24] LABS: Anion Gap 2 mmol/L (8-16); Blood Urea Nitrogen 17 mg/dL (7-17); Calcium 9.5 mg/dL (8.4-10.2); Carbon Dioxide 31 mmol/L (22-30); Chloride 100 mmol/L (98-107); Estimated CRCL calculation 71 ml/min; Estimated Glomerular Filt Rate > 60; Glucose 100 mg/dL (65-110); Potassium 3.6 mmol/L (3.4-5.0); Sodium 133 mmol/L (137-145)
[2023-06-08 08:00] VITALS: PULSE 49
[2023-06-08] MEDS: ASPIRIN 325 MG ENTERIC TABLET PO (08:44)
[2023-06-08] MEDS: ANASTROZOLE (*CHEMO) 1 MG TABLET PO (08:44)
[2023-06-08] MEDS: ATORVASTATIN 40 MG TABLET PO (08:45)
[2023-06-08] MEDS: CHOLECALCIFEROL 1,000 UNITS TABLET 5000 UNITS PO (08:45)
[2023-06-08] MEDS: FOLIC ACID 1 MG TABLET PO (08:45)
[2023-06-08] MEDS: CYANOCOBALAMIN 1,000 MCG TABLET 1000 MCG PO (08:45)
[2023-06-08] MEDS: levETIRAcetam 250 MG TABLET 750 MG PO (08:46)
[2023-06-08] MEDS: LOSARTAN POTASSIUM 50 MG TABLET PO (08:46)
[2023-06-08 12:00] VITALS: PULSE 53
--- NOTE | 2023-06-08 12:33 | PM.IMPN ---
Progress Note: A&P Assessment and Plan (1) UTI (urinary tract infection): Qualifiers: Hematuria presence: with hematuria Urinary tract infection type: acute cystitis Qualified Code(s): N30.01 - Acute cystitis with hematuria Code(s): N39.0 - Urinary tract infection, site not specified Status: Acute Assessment and Plan: C/s with pansensitive Klebsiella oxytoca Continue antibiotics for a total of 7 days (3 days IV ceftriaxone, 4 days PO levaquin 250 mg) (2) Syncope: Qualifiers: Syncope type: unspecified Qualified Code(s): R55 - Syncope and collapse Code(s): R55 - Syncope and collapse Status: Acute Assessment and Plan: Possibly related to infection and dehydration (urine with UTI, FENa c/w prerenal) 3/2 echo to evaluate for showed Moderate aortic sclerosis, mild MR, EF 65-70 %, moderate pHTN at 49 mmHg. (3) Anemia: Code(s): D64.9 - Anemia, unspecified Status: Acute Assessment and Plan: Macrocytic with plt 174k C/w B12 deficiency (4) AAA (abdominal aortic aneurysm) without rupture: Code(s): I71.40 - Abdominal aortic aneurysm, without rupture, unspecified Status: Acute Assessment and Plan: Findings on CTA c/w small, chronic 3.1 cm fusiform infra-renal aneurysm with small area of dissection and fenestration F/u by PCP or vascular as outpatient (5) Vitamin B12 deficiency: Code(s): E53.8 - Deficiency of other specified B group vitamins Status: Acute Assessment and Plan: 3/2 began B12 and folic acid (1mg daily) supplementation with B12 IM 1000 mcg x 1 and B12 PO 1000 mcg daily (6) Hyponatremia: Code(s): E87.1 - Hypo-osmolality and hyponatremia Status: Acute Assessment and Plan: Mild and fairly stable at 133 FENa 3/2 = 0.1%, c/w PRE-RENAL etiology (likely volume depletion) (7) Heart murmur: Code(s): R01.1 - Cardiac murmur, unspecified Status: Acute Assessment and Plan: 3/2 echo with findings as above Subjective Date/time seen: 06/08/23 12:33 Interval history: No dizziness or syncopal episodes since admission. Appetite good. No chest pain shortness of breath. No GI complaints. No abnormal bleeding. not aware of any prior history of abdominal aneurysm or cardiac murmur. Review of Systems Review of Systems: All systems reviewed & are unremarkable except as noted in HPI and below Exam Narrative: HEENT: PERRL, sclerae nonicteric, pharyngeal mucosa pink and intact NECK: No JVD CHEST: Clear to auscultation. Normal effort. HEART: NL S1/S2, regular, 2/6 KATIE R/LUSB TO CAROTIDS ABDOMEN: BS+, soft, nontender, no mass, SOFT EPIGASTRIC BRUITS EXTREMITIES: No cyanosis, edema, or clubbing NEUROLOGIC: CN intact and symmetric to inspection. MUSCULOSKELETAL: Tone and strength symmetric. PSYCH: Alert. Oriented to person, place, and time. Objective Data Vital Signs Vital Signs: Vital Signs - 24 hr 06/07/23 14:00 06/07/23 16:00 06/07/23 19:30 Temperature 98.8 F 97.5 F L Pulse Rate 58 L 58 L 62 Respiratory Rate 18 18 Blood Pressure 105/38 L 111/60 Pulse Oximetry 97 98 Oxygen Delivery 06/07/23 20:37 06/07/23 20:00 06/08/23 00:00 Temperature Pulse Rate 62 59 L 51 L Respiratory Rate Blood Pressure Pulse Oximetry Oxygen Delivery 06/08/23 03:08 06/08/23 04:00 06/08/23 08:00 Temperature 97.4 F L Pulse Rate 52 L 53 L 49 L Respiratory Rate 16 Blood Pressure 104/50 L Pulse Oximetry 94 Oxygen Delivery 06/08/23 08:41 Temperature Pulse Rate Respiratory Rate Blood Pressure Pulse Oximetry Oxygen Delivery Room Air Intake/Output Intake/Output: Intake & Output 06/05/23 06/06/23 06/07/23 06/08/23 23:59 23:59 23:59 23:59 Intake Total 1050 1260 890 400 Output Total 200 800 Balance 1050 1260 690 -400 Meds/Results Medications: Active Medications Generic Name Dose Route Start La
--- NOTE | 2023-06-08 12:59 | PCOTNOTE ---
Attempted to see patient this pm, however patient stated The doctor just told me I could go home now, so I'm hoping I can arrange a ride to go. Pt declined therapy at this time stating, I have my routine at home. Pt has no concerns prior to discharge.
--- NOTE | 2023-06-08 13:04 | PM.DS ---
DS: Admitting Diagnosis Discharge Date 06/08/2023 Admitting Diagnosis syncope DS: Discharge Diagnosis Discharge Diagnosis (1) UTI (urinary tract infection): Qualifiers: Hematuria presence: with hematuria Urinary tract infection type: acute cystitis Qualified Code(s): N30.01 - Acute cystitis with hematuria Code(s): N39.0 - Urinary tract infection, site not specified Status: Acute Assessment and Plan: C/s with pansensitive Klebsiella oxytoca Continue antibiotics for a total of 7 days (3 days IV ceftriaxone, 4 days PO Macrobid 100 mg BID) (2) Syncope: Qualifiers: Syncope type: unspecified Qualified Code(s): R55 - Syncope and collapse Code(s): R55 - Syncope and collapse Status: Acute Assessment and Plan: Possibly related to infection and relative intravascular volume deficit (urine with UTI, FENa c/w prerenal) and antihypertensives 3/2 echo to evaluate for showed Moderate aortic sclerosis, mild MR, EF 65-70 %, moderate pHTN at 49 mmHg. (3) Anemia: Code(s): D64.9 - Anemia, unspecified Status: Acute Assessment and Plan: Macrocytic with plt 174k C/w B12 deficiency (4) AAA (abdominal aortic aneurysm) without rupture: Code(s): I71.40 - Abdominal aortic aneurysm, without rupture, unspecified Status: Acute Assessment and Plan: Findings on CTA c/w small, chronic 3.1 cm fusiform infra-renal aneurysm with small area of dissection and fenestration F/u by PCP or vascular as outpatient (5) Vitamin B12 deficiency: Code(s): E53.8 - Deficiency of other specified B group vitamins Status: Acute Assessment and Plan: 3/2 began B12 and folic acid (1mg daily) supplementation with B12 IM 1000 mcg x 1 and B12 PO 1000 mcg daily (6) Hyponatremia: Code(s): E87.1 - Hypo-osmolality and hyponatremia Status: Acute Assessment and Plan: Mild and fairly stable at 133 FENa 3/2 = 0.1%, c/w PRE-RENAL etiology (likely volume depletion) (7) Heart murmur: Code(s): R01.1 - Cardiac murmur, unspecified Status: Acute Assessment and Plan: 3/2 echo with findings as above DS: Summary Hospital Course Reason for hospitalization: syncope Hospital Course: Admitted with syncopal episode that occurred while seated. She was seated at [facility] where she resides and began to feel hot and lightheaded. She passed out and fell but without injuring herself. She awakened quickly. There was no postictal state. She was transferred to the emergency department where she was found to have an abnormal urinalysis and stable vital signs. Initial laboratory findings were unremarkable with the exception of mild hyponatremia and macrocytic anemia. Vitamin B12 level was low. TSH and cortisol were normal. She was given IV fluid in the emergency department. She was transferred to medical floor for telemetry. She received ceftriaxone for her urinary tract infection. Culture returned with Klebsiella oxytoca. Her telemetry monitoring was unremarkable. She remained asymptomatic during hospitalization. Fractional excretion of sodium suggested a pre renal cause for her mild hyponatremia. Orthostatic blood pressure showed a drop to 94 systolic from 105 systolic. Therefore her amlodipine was discontinued. She tolerated her diet and remained alert and pleasant throughout hospitalization. B12 and folic acid supplementation were begun during hospitalization with 1000 mg IM x1 and then 1000 mg orally daily along with folic acid [address] of head showed: 1. Mild scattered white matter hypoattenuation consistent with chronic small vessel ischemic disease. No acute intracranial process. 2. 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 Correlate with surgical history. CT Chest showed: 1. Airspace opacities at the lung apices, right worse t
[2023-06-08 14:00] VITALS: BP 94/61; PULSE 51; RESP 18; TEMP 36.3; O2SAT 98
[2023-06-08 14:12] LABS: SARS-CoV-2 RNA PCR Positive (Negative)
== END 2023-06-08 15:00 | DRG 314 ==
LOC: ANHED 15:43 → ANH2MED 17:10
PROVIDERS: Nurse Practitioner; Student in an Organized Health Care Education/Training Program; Admitting Provider Family Medicine; Emergency Provider Preventive Medicine Aerospace Medicine; PCP Family Medicine; Visit Provider Internal Medicine
DX: I95.9 Hypotension, unspecified (principal); U07.1 COVID-19; N39.0 Urinary tract infection, site not specified; E87.1 Hypo-osmolality and hyponatremia; E86.0 Dehydration; T46.1X5A Adverse effect of calcium-channel blockers, initial encounter; B96.89 Other specified bacterial agents as the cause of diseases classified elsewhere; I35.8 Other nonrheumatic aortic valve disorders; I71.40 Abdominal aortic aneurysm, without rupture, unspecified; D64.9 Anemia, unspecified; E53.8 Deficiency of other specified B group vitamins; R01.1 Cardiac murmur, unspecified; R56.9 Unspecified convulsions; F41.9 Anxiety disorder, unspecified; F32.A Depression, unspecified; Z86.73 Personal history of transient ischemic attack (TIA), and cerebral infarction without residual deficits; Z79.82 Long term (current) use of aspirin; Z87.891 Personal history of nicotine dependence
CPT/HCPCS: 36415; 70450; 71045; 71250; 74174; 80048; 80053; 81001; 82533; 82550; 82570; 82607; 82746; 83605; 83735; 84300; 84443; 84484; 85025; 87077; 87086; 87088; 87186; 87635; 93005; 93306; 96361; 96365; 97161; 97165; 99285; A9270; G0378; J0696; J3420; J7030; Q9967